=== PATIENT | female | born 1960 | race Two or more races ===

== ENCOUNTER 2021-04-27 15:22 | Inpatient (IN) | payer OTHER ==
[~2021-04-27] VITALS: Ht 160 cm; Wt 54.4 kg
[2021-04-27] MEDS ORDERED: dilTIAZem 25 MG/5 ML VIAL IV ONE ×2 (15:45→16:45)
[2021-04-27 16:15] LABS: Basophils # (auto) 0 10 ^3/uL (0-0.2); Basophils % (auto) 0.2 % (0.0-2.0); Eosinophils # (auto) 0.1 10 ^3/uL (0-0.8); Eosinophils % (auto) 1.8 % (0.0-7.0); Hematocrit 36.3 % (36.0-46.0); Hemoglobin 12.1 g/dL (12.2-16.2); Lymphocytes # (auto) 1.9 10 ^3/uL (0.4-5.4); Lymphocytes % (auto) 37.3 % (10.0-50.0); Mean Corpuscular Hemoglobin 29.2 pg (28.0-32.0); Mean Corpuscular Hgb Conc. 33.4 g/dL (32.0-36.0); Mean Corpuscular Volume 87.4 fL (80.0-100.0); Monocytes # (auto) 0.5 10 ^3/uL (0-1.3); Monocytes % (auto) 9.2 % (0.0-12.0); Neutrophils # (auto) 2.7 10 ^3/uL (1.6-8.6); Neutrophils % (auto) 51.5 % (37.0-80.0); Nucleated Red Blood Cells % 0.1 %; Red Blood Cells 4.16 10^6/uL (4.0-5.20); Red Cell Distribution Width 12.6 % (11.8-14.3); White Blood Cell 5.2 10^3/uL (4.4-10.8)
[2021-04-27 16:32] LABS: Calcium 8.9 mg/dL (8.5-10.1); Magnesium 2.3 mg/dL (1.6-2.6); Potassium 4.2 mmol/L (3.5-5.1)
[2021-04-27 16:35] LABS: Bilirubin, Total 0.4 mg/dL (0.2-1.0); Total Protein 6.7 g/dL (6.4-8.2)
[2021-04-27 16:40] LABS: INR 1.05 (0.9-1.15); Partial Thromboplastin Time 24.5 sec (23.6-33.0)
[2021-04-27] MEDS ORDERED: dilTIAZem 125mg/125ml BAG KIT 125 ML IV ONE (17:30)
[2021-04-27 18:04] LABS: Urine Bacteria NONE SEEN /hpf (None Seen); Urine Blood Negative /uL (Negative); Urine Specific Gravity 1.007 (1.001-1.035); Urine WBC <1 /hpf (0 - 5)
[2021-04-27] MEDS ORDERED: MORPHINE SULFATE INJECTION 2 MG/ML SYRG IV PRN ×3 (19:30→20:30)
[2021-04-27] MEDS ORDERED: ENOXAPARIN SOD 100 MG/1 ML SYRINGE SC ONE (19:30)
[2021-04-27] MEDS ORDERED: NITROGLYCERIN 0.4 MG SL TAB SL PRN ×2 (19:30→20:30)
[2021-04-27] MEDS ORDERED: METOPROLOL SUCCINATE XL 50 MG TAB PO ONE (19:45)
[2021-04-27 20:11] LABS: Free T3 > 20.00 pg/mL (2.3-4.2); Free T4 (Free Thyroxine) 6.45 ng/dL (0.89-1.76)
[2021-04-27] MEDS ORDERED: BENAZEPRIL HCL 10 MG TAB PO ONE (20:30)
[2021-04-27] MEDS ORDERED: ALUM & MAG HYDROX-SIMETH LIQ(MAALOX) 30 ML PO PRN (20:30)
[2021-04-27] MEDS ORDERED: SODIUM CHLORIDE 0.9% 1,000 ML IV SCH (20:30)
[2021-04-27] MEDS ORDERED: ACETAMINOPHEN 325 MG TAB PO PRN (20:30)
[2021-04-27] MEDS ORDERED: ONDANSETRON HCL 4 MG/2 ML VIAL IV PRN (20:30)
[2021-04-27] MEDS ORDERED: LORazepam 0.5 MG TAB PO PRN (20:30)
[2021-04-27] MEDS ORDERED: HYDROcodone-ACET 5/325MG TAB PO PRN (20:30)
[2021-04-27] MEDS ORDERED: DOCUSATE SOD 100 MG CAP PO PRN (20:30)
[2021-04-27] MEDS ORDERED: DEXTROSE (50%) 50ML SYRG IV PRN (20:45)
[2021-04-27] MEDS ORDERED: HYDROCORTISONE SOD SUCC 100 MG/2ML INJ VIAL IV ONE (20:45)
[2021-04-27 21:12] LABS: Amphetamine Screen, Urine NEGATIVE (NEGATIVE); Barbiturate Scree,Urine NEGATIVE (NEGATIVE); Benzodiazephine Screen, Urine NEGATIVE (NEGATIVE); Cannabinoid Screen, Urine NEGATIVE (NEGATIVE); Cocaine Screen, Urine NEGATIVE (NEGATIVE); Opiate Scree,Urine NEGATIVE (NEGATIVE); Phencyclidine Screen, Urine NEGATIVE (NEGATIVE)
[2021-04-27] MEDS ORDERED: FAMOTIDINE (10MG/ML) 2ML VL IV ONE (21:15)
[2021-04-27] MEDS ORDERED: ATORVASTATIN 20 MG TAB PO SCH (22:00)
[2021-04-27] MEDS: PROPRANOLOL HCL 20 MG TAB PO SCH (22:30)
[2021-04-28] MEDS: ACCU-CHEK COMFORT CURVE STRIP VI SCH ×4 (00:44→12:00)
[2021-04-28] MEDS: InsuLIN REG 1unit/0.01ml Soln (100units/ml) SC SCH ×4 (04:00→12:00)
[2021-04-28] MEDS: PROPRANOLOL HCL 20 MG TAB PO SCH ×2 (06:23→15:50)
[2021-04-28 07:42] LABS: Basophils # (auto) 0 10 ^3/uL (0-0.2); Basophils % (auto) 0.4 % (0.0-2.0); Eosinophils # (auto) 0.1 10 ^3/uL (0-0.8); Eosinophils % (auto) 2.7 % (0.0-7.0); Hematocrit 34.6 % (36.0-46.0); Hemoglobin 11.5 g/dL (12.2-16.2); Lymphocytes # (auto) 1.9 10 ^3/uL (0.4-5.4); Lymphocytes % (auto) 36.5 % (10.0-50.0); Mean Corpuscular Hemoglobin 29.3 pg (28.0-32.0); Mean Corpuscular Hgb Conc. 33.4 g/dL (32.0-36.0); Mean Corpuscular Volume 87.7 fL (80.0-100.0); Monocytes # (auto) 0.6 10 ^3/uL (0-1.3); Monocytes % (auto) 10.9 % (0.0-12.0); Neutrophils # (auto) 2.6 10 ^3/uL (1.6-8.6); Neutrophils % (auto) 49.5 % (37.0-80.0); Red Blood Cells 3.94 10^6/uL (4.0-5.20); Red Cell Distribution Width 12.5 % (11.8-14.3); White Blood Cell 5.2 10^3/uL (4.4-10.8)
[2021-04-28 07:44] LABS: INR 1.08 (0.9-1.15)
[2021-04-28 07:47] LABS: Albumin 2.8 g/dL (3.4-5.0); Calcium 8.8 mg/dL (8.5-10.1); Magnesium 2.5 mg/dL (1.6-2.6)
[2021-04-28 07:54] LABS: BUN/Creatinine Ratio 34.1; Bilirubin, Total 0.6 mg/dL (0.2-1.0); Phosphorus 3.4 mg/dL (2.5-4.90); Total Protein 6.1 g/dL (6.4-8.2)
[2021-04-28] MEDS ORDERED: methIMAzole 5 MG TAB PO ONE (09:45)
[2021-04-28 09:59] LABS: Cholesterol 103 mg/dL (< 200)
[2021-04-28] MEDS ORDERED: METOPROLOL SUCCINATE XL 50 MG TAB PO SCH (10:00)
[2021-04-28] MEDS ORDERED: FAMOTIDINE (10MG/ML) 2ML VL IV SCH (10:00)
[2021-04-28] MEDS ORDERED: ASPirin 81 mg TAB PO SCH (10:00)
[2021-04-28] MEDS ORDERED: ENOXAPARIN SOD 60 MG/0.6 ML SYRINGE SC SCH (10:00)
[2021-04-28] MEDS ORDERED: dilTIAZem 120MG ER CAP PO SCH (10:00)
[2021-04-28] MEDS ORDERED: BENAZEPRIL HCL 10 MG TAB PO SCH (10:00)
[2021-04-28 10:01] LABS: HDL Cholesterol 61 mg/dL (40-59); LDL Cholesterol 40 mg/dL (< 100); Triglycerides 54 mg/dL (< 150)
[2021-04-28] MEDS ORDERED: methIMAzole 5 MG TAB PO SCH ×2 (14:00→22:00)
[2021-04-28 14:22] VITALS: BP_SYST 114; BP_SYST 130; BP_DIAS 65; BP_DIAS 67
[2021-04-28] MEDS ORDERED: INSLISPI SC (14:36)
[2021-04-28 14:48] VITALS: BP 130/67
[2021-04-28 16:44] VITALS: BP 110/59
[2021-05-10] MEDS ORDERED: HYDROCORTISONE SOD SUCC 100 MG/2ML INJ VIAL IV SCH (06:00)
== END 2021-04-28 17:30 | disposition left against medical advice (07) | DRG 308 ==
LOC: ER 15:22 → EDBD 15:22 → TELE 19:25 → TELE-CENTR 04-28 14:15
PROVIDERS: ADMIT Hospitalist; ATTEND Internal Medicine
DX: I48.0 Paroxysmal atrial fibrillation (principal); E05.01 Thyrotoxicosis with diffuse goiter with thyrotoxic crisis or storm; Z20.822 Contact with and (suspected) exposure to COVID-19; I47.1 Supraventricular tachycardia; I48.92 Unspecified atrial flutter; E78.5 Hyperlipidemia, unspecified; I10 Essential (primary) hypertension; L30.9 Dermatitis, unspecified; Z96.41 Presence of insulin pump (external) (internal); E11.9 Type 2 diabetes mellitus without complications; Z53.29 Procedure and treatment not carried out because of patient's decision for other reasons; M19.90 Unspecified osteoarthritis, unspecified site; Z79.4 Long term (current) use of insulin
CPT/HCPCS: 36415; 71045; 76536; 80053; 80061; 80307; 81001; 83036; 83605; 83690; 83735; 83880; 84100; 84439; 84443; 84481; 84484; 85025; 85610; 85730; 86376; 86800; 87040; 87086; 87426; 93005; 96365; 96372; 96376; G0378; J3490

== ENCOUNTER 2022-05-01 02:52 | Emergency (ER) | payer OTHER ==
[~2022-05-01] VITALS: Ht 160 cm; Wt 61.2 kg
[~2022-05-01 02:52] MED LIST: INSLISPI SC
[2022-05-01 04:25] LABS: Basophils # (auto) 0.1 10 ^3/uL (0-0.2); Basophils % (auto) 0.7 % (0.0-2.0); Eosinophils # (auto) 0.3 10 ^3/uL (0-0.8); Eosinophils % (auto) 4.5 % (0.0-7.0); Hematocrit 41.6 % (36.0-46.0); Hemoglobin 14.3 g/dL (12.2-16.2); Lymphocytes # (auto) 1.9 10 ^3/uL (0.4-5.4); Lymphocytes % (auto) 25.6 % (10.0-50.0); Mean Corpuscular Hgb Conc. 34.5 g/dL (32.0-36.0); Mean Corpuscular Volume 92.6 fL (80.0-100.0); Monocytes # (auto) 0.5 10 ^3/uL (0-1.3); Monocytes % (auto) 6.7 % (0.0-12.0); Neutrophils # (auto) 4.7 10 ^3/uL (1.6-8.6); Neutrophils % (auto) 62.5 % (37.0-80.0); Nucleated Red Blood Cells % 0.1 %; Red Blood Cells 4.49 10^6/uL (4.0-5.20); Red Cell Distribution Width 13.2 % (11.8-14.3); White Blood Cell 7.5 10^3/uL (4.4-10.8)
[2022-05-01 04:48] LABS: Potassium 3.4 mmol/L (3.5-5.1)
[2022-05-01 04:49] LABS: BUN/Creatinine Ratio 18.3; Bilirubin, Total 0.4 mg/dL (0.2-1.0); Calcium 8.6 mg/dL (8.5-10.1); Total Protein 7.5 g/dL (6.4-8.2)
[2022-05-01 04:54] LABS: INR 0.99 (0.9-1.15); Partial Thromboplastin Time 28.5 sec (24.6-33.4)
[2022-05-01] MEDS ORDERED: METOPROLOL TARTRATE 25 MG TAB PO ONE (07:45)
[2022-05-01 08:40] VITALS: BP 176/97
== END 2022-05-01 09:00 | disposition left against medical advice (07) ==
LOC: EDBD 02:52 → ER 02:52 → EDUNIT# 02:52 → ER 09:00
DX: R00.2 Palpitations (principal); I10 Essential (primary) hypertension; R29.91 Unspecified symptoms and signs involving the musculoskeletal system; E11.9 Type 2 diabetes mellitus without complications; M19.90 Unspecified osteoarthritis, unspecified site; E03.9 Hypothyroidism, unspecified; Z90.89 Acquired absence of other organs; Z53.29 Procedure and treatment not carried out because of patient's decision for other reasons
CPT/HCPCS: 36415; 71045; 80053; 83735; 83880; 84443; 84484; 85025; 85610; 85730; 93005